=== PATIENT | male | born 1995 | race Caucasian/White ===

== ENCOUNTER 2016-04-25 20:24 | Emergency (ER) ==
[2016-04-25 20:43] VITALS: BP 138/74
[2016-04-25] MEDS ORDERED: NAPROSYN PO ONE (21:35)
--- NOTE | 2016-04-25 21:38 | PROVIDER DOCUMENTATION ---
HPI-General Adult - General Source: patient - History of Present Illness -Gen Adult Nature of Presenting Problems: 20 y/o m presents to the ed with a left foot/ankle injury. 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 upon arrival pt did not have any deformity. pt denies any other injuries. Location of Pain/Injury: reports: feet (left foot/ankle) Pain Radiation: reports: no radiation Quality of Pain: reports: aching Severity: reports: mild Onset/Duration: reports: 1-3 hours ago Timing: reports: still present Similar Symptoms Previously?: No Recently seen or treated by another doctor?: No <Milly De La Garza - Last Filed: 04/25/16 21:39> <Darell Pham - Last Filed: 04/25/16 23:16> - General Chief Complaint: Extremity Injury Stated Complaint: LT FOOT INJ Time Seen by Provider: 04/25/16 21:26 Allergies/Adverse Reactions: Patient Allergies Allergy/AdvReac Type Severity Reaction Status Date / Time No Known Allergies Allergy Verified 04/25/16 20:43 Review of Systems - Adult - REVIEW OF SYSTEMS - ADULT Constitutional: denies: chills, fever Musculoskeletal: denies: back pain, muscle aches Neurological: denies: dizziness/vertigo, headache/migraines <Milly De La Garza - Last Filed: 04/25/16 21:39> Past History - Adult - PAST MEDICAL HISTORY-ADULT Review of Records: reports: Old Records Reviewed, Nursing Assessment Review, Medications Reviewed - IMMUNIZATION STATUS Childhood Immunizations: See Nurse Assessment Flu Vaccine: See Nurse Assessment - SOCIAL HISTORY Smoking: non-smoker <Milly De La Garza - Last Filed: 04/25/16 21:39> Physical Exam-General - PHYSICAL EXAM-ADULT Initial Vital Signs Reviewed: Yes - CONSTITUTIONAL General Appearance: alert, no apparent distress - EYES Eyes: PERRL/EOMI, pink conjunctivae, fundi clear, no AV nicking - HEAD, EARS, NOSE, MOUTH & THROAT HENMT: normocephalic/atraumatic, moist mucous membranes, normal ENT inspection - NECK Neck: non-tender, full range of motion, supple - RESPIRATORY Respiratory: chest non-tender, lungs clear, normal breath sounds - CARDIOVASCULAR Cardiovascular: normal peripheral pulses, regular rate, rhythm - GASTROINTESTINAL (ABDOMEN) Abdominal Exam: normal bowel sounds, non tender, soft - LYMPHATIC Lymphatic: no adenopathy - MUSCULOSKELETAL Back Exam: normal inspection Extremity: normal range of motion, tenderness (left ankle) - SKIN Integumentary: normal color, normal turgor, warm/dry - PSYCHIATRIC Psych/Mental Status: normal mood/affect, normal thought content, normal thought process, oriented x 3 <Milly De La Garza - Last Filed: 04/25/16 21:39> Progress - PLAN OF CARE/RESULTS Progress/Plan/Lab Results: plan of care: imaging Orders Category Date Time Status Routine PostOp Vital Signs ORDERED Care 04/25/16 21:33 Active ANKLE COMPLETE LEFT [RAD] Stat Exams 04/25/16 21:10 Taken FOOT COMPLETE LEFT [RAD] Stat Exams 04/25/16 20:44 Taken Naproxen [Naprosyn] Med 04/25/16 21:35 Discontinued 500 mg PO NOW ONE Vital Signs - 24 hr 04/25/16 20:40 Temperature 98.5 F Pulse Rate 125 H Respiratory 18 Rate Blood Pressure 138/74 O2 Sat by Pulse 99 Oximetry - XRAY 1 XRAY: Left XRAY Study: Ankle XRAY Interpretation: no fx <Milly De La Garza - Last Filed: 04/25/16 21:39> Departure - Departure Time of Disposition Order: 21:38 Certified Medical Emergency: Emergent <Milly De La Garza - Last Filed: 04/25/16 21:39> - Departure Certified Medical Emergency: Emergent <Darell Pham - Last Filed: 04/25/16 23:16> - Departure DIAGNOSIS: Contusion of left foot Left ankle sprain Qualifiers: Encounter type: initial encounter Involved ligament of ankle: unspecified ligament Qualified Code(s): S93.402A - Sprain of unspecified ligament of left ankle, initial encounter Disposition: HOME 01 Condition: Stable Additional Instructions: ED Follow Up Instructions: You have been treated by a care provider in the Emergency Department. These instructions are being provided to you so you can have an understanding of how to care for yourself upon discharge. Upon discharge from the Emergency Department, you are responsible for making arrangements for follow-up care by a physician of your choice. Take all prescribed medications as directed. Return to the Emergency Department immediately for any new or worsening symptoms. You may call the Physician Referral phone number at [phone] to obtain a list of Physicians who are taking new patients. Prescriptions: Hydrocodone/APAP 5 mg/325 mg [[place]-5] 1 tab PO Q6H PRN PRN #12 tablet PRN Reason: Pain Referrals: Rita Nelson MD [Primary Care Provider] - Instructions: Ankle Sprain, [id number] Attestation - Scribe Verification/Attestation Scribe:: Milly De La Garza Acting as Scribe for:: Darell Pham Scribe documention review:: This chart was documented by a scribe and accurately reflects the service the provider performed and the decisions made by the provider. <Milly De La Garza - Last Filed: 04/25/16 21:39> Physician Attestation
--- NOTE | 2016-04-26 02:38 | Diag Imaging Result Document ---
PROCEDURE NAME: FOOT COMPLETE LEFT - 04/25/2016 PLAIN RADIOGRAPH OF THE LEFT FOOT 3 VIEWS: COMPARISON: None available. FINDINGS: There is no discrete fracture, dislocation, or intrinsic osseous lesion appreciated. The joint spaces appear to be preserved. There is suggestion of mild soft tissue edema at the dorsum of the foot. IMPRESSION: No definite acute osseous abnormality by plain radiograph.
--- NOTE | 2016-04-26 02:39 | Diag Imaging Result Document ---
PROCEDURE NAME: ANKLE COMPLETE LEFT - 04/25/2016 PLAIN RADIOGRAPH THE LEFT ANKLE 3 VIEWS: COMPARISON: None available. FINDINGS: There is no discrete fracture, dislocation, or intrinsic osseous lesion. The visualized joint spaces are essentially unremarkable. The surrounding soft tissues are grossly unremarkable. IMPRESSION: No evidence of acute osseous abnormality.
== END 2016-04-25 21:58 | disposition home or self-care (01) ==
LOC: ED 20:24
DX: S93.402A Sprain of unspecified ligament of left ankle, initial encounter (principal); S90.32XA Contusion of left foot, initial encounter; M25.572 Pain in left ankle and joints of left foot; M79.672 Pain in left foot; W19.XXXA Unspecified fall, initial encounter
CPT/HCPCS: 99283